=== PATIENT | male | born 1990 | race Caucasian/White ===

== ENCOUNTER 2016-09-03 03:55 | Emergency (ER) | payer OTHER ==
[2016-09-03 04:40] VITALS: BP 117/68
== END 2016-09-03 04:40 | disposition other institution (70) ==
LOC: ED 03:55
DX: Z02.89 Encounter for other administrative examinations (principal); V49.9XXA Car occupant (driver) (passenger) injured in unspecified traffic accident, initial encounter; Y93.89 Activity, other specified; Y99.8 Other external cause status; Y92.89 Other specified places as the place of occurrence of the external cause